=== PATIENT | female | born 1995 | race Caucasian/White ===

== ENCOUNTER 2016-09-04 15:56 | Emergency (ER) | payer OTHER ==
[2016-09-04 17:18] LABS: RED BLOOD COUNT 3.93 M/UL (4.00-5.10); WHITE BLOOD COUNT 12.8 K/UL (4.5-11.0)
[2016-09-04 17:41] LABS: BUN/CREATININE RATIO 14 (0-10)
== END 2016-09-04 20:55 | disposition home or self-care (01) ==
LOC: ER1 15:56
PROVIDERS: Physician Assistant
DX: O23.42 Unspecified infection of urinary tract in pregnancy, second trimester (principal); O99.89 Other specified diseases and conditions complicating pregnancy, childbirth and the puerperium; R10.814 Left lower quadrant abdominal tenderness; Z88.1 Allergy status to other antibiotic agents; Z90.49 Acquired absence of other specified parts of digestive tract; Z79.899 Other long term (current) drug therapy; Z3A.14 14 weeks gestation of pregnancy
CPT/HCPCS: 36415; 76805; 80048; 81001; 84703; 85025; 87086; 96372; 99284; J0696

== ENCOUNTER 2020-06-19 00:03 | Emergency (ER) | payer OTHER ==
[~2020-06-19 00:03] MED LIST: COLACE 100MG C100 MG PO
[2020-06-19 01:16] LABS: HEMOGLOBIN 13.8 gm/dl (12.3-15.3); RED BLOOD COUNT 4.49 M/UL (4.00-5.10); WHITE BLOOD COUNT 10.8 K/UL (4.5-11.0)
[2020-06-19 01:36] LABS: BUN/CREATININE RATIO 17 (0-10)
[2020-06-19] MEDS ORDERED: CEPHALEXIN500 MG PO (03:04)
[2020-06-19] MEDS ORDERED: LODINE CAP 300300 MG PO (03:04)
[2020-06-19] MEDS ORDERED: ZOFRAN ODT 4 MG4 MG PO (03:04)
== END 2020-06-19 03:35 | disposition home or self-care (01) ==
LOC: ER1 00:03
PROVIDERS: Physician Assistant
DX: J02.9 Acute pharyngitis, unspecified (principal); N39.0 Urinary tract infection, site not specified; Z20.822 Contact with and (suspected) exposure to COVID-19; Z90.49 Acquired absence of other specified parts of digestive tract; Z88.2 Allergy status to sulfonamides; Z87.442 Personal history of urinary calculi; Z88.1 Allergy status to other antibiotic agents
CPT/HCPCS: 0240U; 71045; 80053; 81001; 83605; 83690; 84703; 85025; 87081; 87086; 87880; 93005; 96365; 96375; 99284; J0696; J1885; J2405